=== PATIENT | female | born 1965 | race Hispanic/Latino ===

== ENCOUNTER 2024-03-02 06:39 | Emergency (ER) | payer SELFPAY ==
--- NOTE | ~2024-03-02 | XR_ITS ---
AP and lateral views of the right femur Clinical History: Pain Findings: There is an oblique, displaced fracture of the mid to distal right femoral shaft. Distal fr acture fragment is displaced laterally by up to approximately 4.5 cm, probable mild overriding.. Visu alized joint spaces are grossly preserved. Soft tissues are unremarkable. Impression: Acute, oblique, displaced fracture the mid to distal right femoral shaft, as detailed above. Reviewed, dictated and finalized at location . [employer] Impression: Acute, oblique, displaced fracture the mid to distal right femoral shaft, as de tailed above.
--- NOTE | ~2024-03-02 | XR_ITS ---
AP view of the pelvis and AP and lateral views of the right hip Clinical history: Pain Findings: No acute fracture or dislocation is seen. Osseous alignment is anatomic. Bilateral hip and SI joint spaces are preserved. Soft tissues are unremarkable. Impression: No significant abnormality is seen. Reviewed, dictated and finalized at [facility]. [employer] Impression: No significant abnormality is seen.
--- NOTE | ~2024-03-02 | XR_ITS ---
AP view of the chest, and AP and oblique views of the right ribs Clinical History: Pain Findings: No rib fracture is seen. Osseous alignment is anatomic. Lungs are clear, without focal cons olidation or pleural effusion. Cardiomediastinal contour is probably enlarged. Soft tissues are unrem arkable. Impression: No rib fracture is seen. Clear lungs. Probable cardiomegaly. Reviewed, dictated and finalized at location . [employer]ARM [employer] Impression: No rib fracture is seen. Clear lungs. Probable cardiomegaly.
--- NOTE | ~2024-03-02 | XR_ITS ---
Right Knee Technique: AP, lateral, and sunrise views were obtained. Clinical History: Injury Findings: There is acute, oblique, displaced fracture of the mid to distal right femoral shaft. There is lateral displacement of the distal fracture fragment by up to approximately 4.5 cm.. Joint spaces are preserved without degenerative or erosive change. Soft tissues are unremarkable. No joint effusi on is seen. Impression: Acute, oblique, displaced fracture of the mid to distal right femoral shaft, as detailed above. Reviewed, dictated and finalized at location M. [employer] Impression: Acute, oblique, displaced fracture of the mid to distal right femoral shaft, as detailed above.
[2024-03-02 06:50] VITALS: BP 134/72; PULSE 69; RESP 18; TEMP 36.4; O2SAT 100
[2024-03-02 07:01] VITALS: BP 134/72; PULSE 66; RESP 17; TEMP 36.4; O2SAT 98
--- NOTE | 2024-03-02 07:51 | ED.FALL ---
HPI - Fall General Chief Complaint: Fall Stated Complaint: glf - right hip pain Time Seen by Provider: 03/02/24 06:59 History of Present Illness HPI Narrative: Patient was walking outside when she slipped and fell down, landing on her knees, was unable to get up due to pain especially with movement of her right knee. No numbness or weakness. Some slight pain to her right back also. did not hit her head, no loss of consciousness Related Data Allergies Allergy/AdvReac Type Severity Reaction Status Date / Time No Known Allergies Allergy Verified 03/02/24 07:00 Review of Systems Review of Systems: All systems reviewed & are unremarkable except as noted in HPI and below Exam Narrative: EXAMINATION OF ORGAN SYSTEMS/BODY AREAS: Constitutional: Vital signs per nursing GENERAL: looking slightly uncomfortable in the bed HEAD: Normal with no signs of head trauma. EYES: EOMI, conjunctiva normal ENT: Hearing grossly intact NECK: No midline tenderness LUNGS: Nonlabored breathing. HEART: [Regular rate and rhythm]; slight tenderness to R flank. strong DP pulse ABD: [Soft], [nontender to palpation] EXT: some swelling to right thigh/knee some bruising to left knee, left arm SKIN: [No rashes or lesions.] NEURO: [Alert and oriented x 3. No gross focal sensory or strength deficits.] PSYCH: Normal affect Course Vital Signs Vital signs: Vital Signs Temperature 97.5 F L 03/02/24 06:50 Pulse Rate 69 03/02/24 06:50 Respiratory Rate 18 03/02/24 06:50 Blood Pressure 134/72 03/02/24 06:50 Pulse Oximetry 100 03/02/24 06:50 Oxygen Delivery Room Air 03/02/24 06:50 Temperature 97.5 F L 03/02/24 07:01 Pulse Rate 66 03/02/24 07:01 Respiratory Rate 17 03/02/24 07:01 Blood Pressure 134/72 03/02/24 07:01 Pulse Oximetry 98 03/02/24 07:01 Oxygen Delivery Room Air 03/02/24 06:50 MDM - Fall MDM Narrative Medical decision making narrative: 58F p/w RLE pain/injury after fall. Denies other injuries. IV morphine given. XR obtained. XR unfortunately shows Acute, oblique, displaced fracture the mid to distal right femoral shaft 4.5cm D/w ortho Dr Ch who recommends transfer. D/w pt, no preference for facility. Add'l dilaudid given for pain control. Dr. Villalobos at [facility] accepts. Lab Data 03/02/24 08:11 03/02/24 08:11 Labs: Lab Results 03/02/24 Range/Units 08:11 WBC 8.5 (4.5-10.0) K/mm3 RBC 3.92 L (4.2-5.4) M/mm3 Hgb 12.6 (12.0-15.0) g/dL Hct 37.3 (37.0-47.0) % MCV 95.2 (80-100) fl MCH 32.1 (26-34) pg MCHC 33.8 (32-36) g/dl RDW 13.2 (11.5-14.5) % Plt Count 223 (150-375) k/mm3 MPV 10.0 (7.4-10.4) fl Immature Gran % (Auto) 0.4 (0-0.5) % Neut % (Auto) 68.6 (45.5-73.1) % Lymph % (Auto) 23.9 (18.3-44.2) % [place] % (Auto) 6.0 (2.6-8.5) % Eos % (Auto) 0.9 (0-4.4) % Baso % (Auto) 0.2 (0.2-1.2) % Lymph # (Auto) 2.03 (0.9-3.2) K/mm3 [place] # (Auto) 0.5 (0.1-0.6) K/mm3 Eos # (Auto) 0.1 (0-0.3) K/mm3 Baso # (Auto) 0.0 (0.0-0.1) K/mm3 Abs Immat Gran (auto) 0.03 (0.00-0.031) K/mm3 Absolute Neuts (auto) 5.8 (1.3-6.7) K/mm3 Absolute Nucleated RBC 0.000 (0.0-0.012) K/mm3 Nucleated RBC % 0.0 (0.0-0.2) % Sodium 139 (137-145) mmol/L Potassium 4.1 (3.4-5.0) mmol/L Chloride 108 H (98-107) mmol/L Carbon Dioxide 27 (22-30) mmol/L Anion Gap 4 (4-12) mmol/L BUN 17 (7-17) mg/dL Creatinine 0.40 L (0.7-1.0) mg/dL Estim Creat Clear Calc Not Reportable Estimated GFR > 60 (59 - ) Glucose 111 H (65-110) mg/dL Calcium 9.0 (8.4-10.2) mg/dL Critical Care Time Critical Care Time Critical Care Time: Yes Total Critical Care Time: 31 Discharge Plan Discharge Clinical Impression: Femoral fracture Patient Disposition: Acute Care Hospital Condition: Serious Patient Language: Hungarian Follow-up/Referrals: PHYSICIAN NOT ON STAFF,NONSTAFF [Non-Staff] -
[2024-03-02] MEDS: MORPHINE SULFATE (*CRX) 2 MG/ML INJ IV PUSH (07:59)
[2024-03-02 08:00] VITALS: BP 132/80; PULSE 88; RESP 16; TEMP 36.7; O2SAT 100
[2024-03-02 08:16] LABS: Basophils Percent Auto 0.2 % (0.2-1.2); Eosinophils Absolute Auto 0.1 K/mm3 (0-0.3); Eosinophils Percent Auto 0.9 % (0-4.4); Hematocrit 37.3 % (37.0-47.0); Hemoglobin 12.6 g/dL (12.0-15.0); Immature Granulocyte Absolute 0.03 K/mm3 (0.00-0.031); Immature Granulocyte Percent A 0.4 % (0-0.5); Lymphocytes Absolute Auto 2.03 K/mm3 (0.9-3.2); Lymphocytes Percent Auto 23.9 % (18.3-44.2); Mean Corpuscular HGB Conc 33.8 g/dl (32-36); Mean Corpuscular Hemoglobin 32.1 pg (26-34); Mean Corpuscular Volume 95.2 fl (80-100); Monocytes Absolute Auto 0.5 K/mm3 (0.1-0.6); Neutrophils Absolute Auto 5.8 K/mm3 (1.3-6.7); Neutrophils Percent Auto 68.6 % (45.5-73.1); Platelet Count Result 223 k/mm3 (150-375); Red Blood Count 3.92 M/mm3 (4.2-5.4); Red Cell Distribution Width 13.2 % (11.5-14.5); White Blood Count 8.5 K/mm3 (4.5-10.0)
[2024-03-02 08:25] LABS: Anion Gap 4 mmol/L (4-12); Blood Urea Nitrogen 17 mg/dL (7-17); Carbon Dioxide 27 mmol/L (22-30); Chloride 108 mmol/L (98-107); Estimated Glomerular Filt Rate > 60; Glucose 111 mg/dL (65-110); Potassium 4.1 mmol/L (3.4-5.0); Sodium 139 mmol/L (137-145)
[2024-03-02] MEDS: HYDROmorphone HCL INJ (*CRX) 1 MG/ML SYR 0.5 MG IV PUSH (08:42)
[2024-03-02 09:09] VITALS: BP 128/74; PULSE 80; RESP 16; TEMP 36.6; O2SAT 100
== END 2024-03-02 10:14 | disposition short-term general hospital (02) ==
PROVIDERS: Emergency Provider Emergency Medicine
DX: S72.331A Displaced oblique fracture of shaft of right femur, initial encounter for closed fracture (principal); W18.30XA Fall on same level, unspecified, initial encounter
CPT/HCPCS: 36415; 71101; 73502; 73552; 73560; 80048; 85025; 96374; 96375; 99285; J1171; J2270